=== PATIENT | female | born 1990 | race Caucasian/White ===

== ENCOUNTER → 2017-12-27 | Outpatient (CLI) | payer OTHER ==
[~2017-12-27] MED LIST: BCPILLS PO; CIPR-255 PO
--- NOTE | 2017-12-28 08:02 | MAMMOGRAPHY REPORT ---
ULTRASOUND OF LEFT BREAST: 12/27/2017 CLINICAL HISTORY: 27-year-old woman presents after her provider felt a lump in the left breast on rec ent physical examination. Patient cannot definitely feel the lump herself but reports the general loc ation in the subareolar breast. No skin erythema or thickening. No nipple discharge. No family his tory of breast cancer. COMPARISON: No prior exams were available for comparison. FINDINGS: Targeted ultrasound was performed in the periareolar and subareolar left breast with partic ular attention to the medial aspect of the subareolar breast where the patient pointed out to the abn ormality, and also the 7:00 subareolar breast as per comment provided in the doctor's order. There is dense fibroglandular tissue in the periareolar and retroareolar left breast. No discrete so lid or cystic mass is identified. No focal skin thickening or drainable fluid collection. After ult rasounding, Palpation was performed in the periareolar and retroareolar left breast and I could not palpate a dis crete abnormality. IMPRESSION: ACR BI-RADS CATEGORY 1: NEGATIVE There is no sonographic evidence of malignancy or other suspicious abnormality in the periareolar/sub areolar left breast in the area of palpable lump identified by the patient's provider. Therefore, cl inical follow-up is recommended, as biopsy of a clinically suspicious mass should not be precluded by negative imaging. These results and recommendations were discussed with the patient at the time of the exam. Zeenat Mullins M.D. ay/:12/27/2017 10:56:04 Documentation Spec: Dr. Zeenat Mullins, [facility] letter sent: Normal 1/2 BI-RADS Code: ACR BI-RADS Category 1: Negative
== END | disposition home or self-care (01) ==
LOC: C.MAMM 10:16
PROVIDERS: ATTEND Nurse Practitioner Obstetrics & Gynecology
DX: N63.20 Unspecified lump in the left breast, unspecified quadrant (principal)

== ENCOUNTER 2020-04-11 15:50 | Inpatient (IN) ==
[2020-04-11] MEDS ORDERED: OXYTOCIN 30 UNITS/500 ML BAG IV PRN (16:34)
[2020-04-11] MEDS ORDERED: LACTATED RINGER'S 1,000 ML IV PRN (16:34)
[2020-04-11 16:53] LABS: Hematocrit (blood only) 35.6 % (37-47); Hemoglobin 12.1 g/dL (12.0-16.0); Mean Corpuscular Hemoglobin 31.8 pg (25-34); Mean Corpuscular Volume 93.7 fL (80-100); Mean Platelet Volume 10.6 fL (7.4-10.4); Platelet Count 177 K/uL (130-400); RDW Coefficient of Variation 12.9 % (11.5-14.5); RDW Standard Deviation 43.9 fL (36.4-46.3); White Blood Count 15.12 K/uL (4.8-10.8)
--- NOTE | 2020-04-12 00:45 | Labor Progress Brief Note ---
Date of Service April 11, 2020 Subjective Reason For Note: Routine Evaluation Assessment & Plan (1) Supervision of normal intrauterine in primigravida: 30yo at 40.6 weeks GA. Labor 1. Fetus: Cat 1 2. Labor: Progressing un-augmented. AROM clr 3. GBS negative 4. Vitals: Stable Admission and Anticipated Discharge Date Admission Date: April 11, 2020 Physical Exam Genitourinary: Manual OB Exam: + cervical dilation 9 cm, + cervical effacement 100%, + station 0 and + amniotic fluid clear OB Exam Monitor Tracing: + external FHT monitor used, + external uterine monitor used, + category I and + normal FHT variability; no early decelerations present, no late decelerations present and no variable decelerations Results & Data ([facility]) Vital Signs (Past 12 Hours) Vital Signs Temp Pulse Resp BP 04/11/20 23:45 36.5 C 20 04/11/20 23:00 20 04/11/20 21:40 36.8 C 75 20 156/81 H 04/11/20 19:02 36.8 C 18 04/11/20 19:01 86 127/84 04/11/20 19:00 36.8 C 18 04/11/20 16:08 36.9 C 04/11/20 16:02 36.9 C 76 20 148/83 H Coding Level of Care Code None Diagnoses Supervision of normal intrauterine in primigravida Z34.00
--- NOTE | 2020-04-12 00:46 | Labor Progress Brief Note ---
Date of Service April 12, 2020 Subjective Reason For Note: Routine Evaluation Assessment & Plan (1) Supervision of normal intrauterine in primigravida: 30yo at 40.6 weeks GA. Labor 1. Fetus: Cat 1 2. Labor: Complete and starting to push. AROM clr 3. GBS negative 4. Vitals: Stable Admission and Anticipated Discharge Date Admission Date: April 11, 2020 Physical Exam Genitourinary: Manual OB Exam: + cervical dilation 10 cm, + cervical effacement 100%, + station + 1 and + amniotic fluid clear OB Exam Monitor Tracing: + external FHT monitor used, + external uterine monitor used, + category I and + normal FHT variability Results & Data ([facility]) Vital Signs (Past 12 Hours) Vital Signs Temp Pulse Resp BP 04/12/20 00:41 102 H 120/65 04/11/20 23:45 36.5 C 04/11/20 23:00 20 04/11/20 21:40 36.8 C 75 20 156/81 H 04/11/20 19:02 36.8 C 18 04/11/20 19:01 86 127/84 04/11/20 19:00 36.8 C 18 04/11/20 16:08 36.9 C 04/11/20 16:02 36.9 C 76 20 148/83 H Coding Level of Care Code None Diagnoses Supervision of normal intrauterine in primigravida Z34.00
[2020-04-12] MEDS ORDERED: METHYLERGONOVINE MALEATE 0.2 MG/ML AMP ONE (02:13)
[2020-04-12] MEDS ORDERED: HYDROCORTISONE ACETATE 25 MG SUPP PR PRN (02:37)
[2020-04-12] MEDS ORDERED: bisacodyL 10 MG SUPP PR PRN (02:37)
[2020-04-12] MEDS ORDERED: BENZOCAINE 20% AER SPR 82.5 GM CAN EXT PRN (02:37)
[2020-04-12] MEDS ORDERED: miSOPROStoL 200 MCG TAB PR ONE (02:37)
[2020-04-12] MEDS ORDERED: DIPHTHERIA/TETANUS/PERTUSSIS 0.5 ML SYR/VIAL IM ONE (02:37)
[2020-04-12] MEDS ORDERED: SUPERCREAM 0.870% 15 GM JAR EXT PRN (02:37)
[2020-04-12] MEDS ORDERED: ACETAMINOPHEN 325 MG TAB PO PRN (02:37)
[2020-04-12] MEDS ORDERED: METHYLERGONOVINE MALEATE 0.2 MG/ML AMP IM ONE (02:37)
[2020-04-12] MEDS ORDERED: OXYTOCIN 10 UNITS/ML VIAL IM ONE (02:37)
[2020-04-12] MEDS ORDERED: IBUPROFEN 600 MG TAB PO ONE (03:09)
[2020-04-12] MEDS ORDERED: miSOPROStoL 200 MCG TAB ONE (04:54)
[2020-04-12] MEDS: FERROUS SULFATE 325 MG TAB PO SCH (07:44)
[2020-04-12] MEDS: DOCUSATE SODIUM 100 MG CAP PO SCH ×2 (07:44→20:03)
[2020-04-12] MEDS: IBUPROFEN 600 MG TAB PO PRN ×4 (07:44→23:16)
[2020-04-12] MEDS: PRENATAL VITAMIN 1 TAB PO SCH (07:44)
--- NOTE | 2020-04-13 06:58 | Obstetrical Progress Note ---
Date of Service April 13, 2020 Assessment & Plan (1) Encounter for care and examination after delivery: 30 yo F PPD1 after uncomplicated on 04/12. 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 Patient may want to be discharged later today. Stable for discharge if preferred. Subjective mild abdominal pain this AM. otherwise no complaints. Review of Systems Constitutional: no fever, no chills, no body aches and no fatigue Respiratory: no cough and no dyspnea Cardiovascular: no chest pain, no dyspnea and no edema Gastrointestinal: no abdominal pain, no nausea, no vomiting, no constipation and no diarrhea/loose stools Genitourinary: no dysuria Physical Exam Constitutional: well developed and well nourished Respiratory: normal respiratory effort; no respiratory distress, no labored breathing and no cough Auscultation: no crackles, no rales, no rhonchi and no wheezes Cardiovascular: Rate/Rhythm: regular rate and regular rhythm Heart Sounds: no gallop, no murmur and no cardiac rub Extremities: no pedal edema Gastrointestinal (Abdomen): Inspection/Auscultation: + abdomen distended and normal bowel sounds Percussion/Palpation: abdomen soft; no guarding Musculoskeletal: no tenderness to palpation of calves bilaterally Genitourinary: Uterus small and firm, palpable on right 2 cm above level of umbilicus, some tenderness to palpation. Results & Data ([facility]) Vital Signs (Past 12 Hours) Vital Signs Temp Pulse Resp BP Pulse Ox 04/12/20 23:10 36.8 C 100 H 16 115/78 96 04/12/20 19:10 36.8 C 90 16 115/73 97 Laboratory Results WBC 15.12 K/uL (4.8-10.8) H 04/11/20 16:46 RBC 3.80 M/uL (4.2-5.4) L 04/11/20 16:46 Hgb 12.1 g/dL (12.0-16.0) 04/11/20 16:46 Hct 35.6 % (37-47) L 04/11/20 16:46 MCV 93.7 fL (80-100) 04/11/20 16:46 MCH 31.8 pg (25-34) 04/11/20 16:46 MCHC 34.0 g/dL (32-36) 04/11/20 16:46 RDW Std Deviation 43.9 fL (36.4-46.3) 04/11/20 16:46 RDW Coeff of Presley 12.9 % (11.5-14.5) 04/11/20 16:46 Plt Count 177 K/uL (130-400) 04/11/20 16:46 MPV 10.6 fL (7.4-10.4) H 04/11/20 16:46 Resident Activity Tracking Resident Involvement: Resident Care Provided Care Provided: OB Delivery
[2020-04-13 06:59] LABS: Hematocrit (blood only) 24.7 % (37-47); Hemoglobin 8.5 g/dL (12.0-16.0)
[2020-04-13] MEDS: DOCUSATE SODIUM 100 MG CAP PO SCH ×2 (07:57→20:30)
[2020-04-13] MEDS: FERROUS SULFATE 325 MG TAB PO SCH (07:57)
[2020-04-13] MEDS: PRENATAL VITAMIN 1 TAB PO SCH (07:57)
[2020-04-13] MEDS ORDERED: bisacodyL 5 MG TABEC PO SCH (20:00)
--- NOTE | 2020-04-14 07:30 | Obstetrical Progress Note ---
Date of Service April 14, 2020 Assessment & Plan (1) Encounter for care and examination after delivery: stable course discharge to home today follow up in 6 weeks. Day #:: 2 Subjective Ambulation: ambulating normally Voiding: no voiding problems Passing Gas:: Yes Diet Tolerance:: regular diet Lochia:: Small Feeding Type:: breast feeding Review of Systems All systems reviewed & are unremarkable except as noted in HPI & below Physical Exam Constitutional WD/WN, vitals as above Psychiatric A+Ox3, euthymic affect Genitourinary OB Exam Abdomen: + fundal height Fundus: + firm and + relation to umbilicus (2 below U) Results & Data ([facility]) Vital Signs (Past 12 Hours) Vital Signs Temp Pulse Resp BP 04/13/20 23:55 98.2 F 86 18 121/73 04/13/20 20:20 97.7 F 96 H 18 126/81
[2020-04-14] MEDS: PRENATAL VITAMIN 1 TAB PO SCH (09:24)
[2020-04-14] MEDS: DOCUSATE SODIUM 100 MG CAP PO SCH (09:24)
[2020-04-14] MEDS: FERROUS SULFATE 325 MG TAB PO SCH (09:24)
--- NOTE | 2020-04-16 09:21 | Delivery Summary ---
DATE OF OPERATION: 04/12/2020 PROCEDURE: Normal spontaneous vaginal delivery with second degree perineal laceration repair and bilateral periurethral lacerations. SURGEON: Dr. Guilherme Capps. PREOPERATIVE DIAGNOSES: 1. Single intrauterine at term. 2. Spontaneous labor. 3. Anxiety, depression. POSTOPERATIVE DIAGNOSES: 1. Single intrauterine at term. 2. Spontaneous labor. 3. Anxiety, depression. 4. Status post delivery. ESTIMATED BLOOD LOSS: 500 mL. DRAINS: Straight cath for 300 mL after delivery of placenta. COMPLICATIONS: None. FINDINGS: Viable male infant with weight of 8 pounds 4.8 ounces and Apgars of 8 and 9 at 1 and 5 minutes respectively. INDICATIONS: The patient presented in active labor at approximately 6 cm dilation. She progressed without augmentation till 9 cm. She then underwent artificial rupture of membranes for clear fluid and progressed in labor to complete-complete +2 station, at which time she felt the urge to push. The patient pushed for approximately 1 hour and 40 minutes to achieve delivery. DESCRIPTION OF PROCEDURE: The patient progressed to 10 cm dilated, 100% effaced, +2 station, pushed over an intact perineum without anesthesia and delivered a viable male , weight and Apgars as noted above. Head of the delivered in MORAIMA position and rest to right transverse. No nuchal cord was noted. Body and shoulders quickly followed. was noted to be vigorous upon delivery and a 1-minute delayed cord clamping was initiated. Cord was then double clamped and cut and the remained with maternal abdomen. Cord blood was obtained. Attention was then turned to deliver the placenta, which was delivered intact, 3-vessel cord, gentle cord traction. On inspection of the perineum, vagina and cervix, there was noted to be a second degree perineal laceration. After delivery of placenta, 10 units of IM Pitocin were given to the patient secondary to not having an IV access. She also received Methergine and Cytotec during the repair process. The second degree perineal laceration was repaired with 3-0 Vicryl in continuous running crown stitch. Needle, sponge and instrument counts were correct at the completion of the case. Both mother and were stable in the immediate post delivery period. I attest to the content of the Intraoperative Record and any orders documented therein. Any exceptions are noted below. CHARU
== END 2020-04-14 14:30 | disposition home or self-care (01) | DRG 807 ==
LOC: OPB 15:50 → 4S1 15:51 → 4S2 04-12 05:10

== ENCOUNTER 2023-04-27 07:37 | Inpatient (IN) ==
[2023-04-27] MEDS ORDERED: OXYTOCIN 30 UNITS/500 ML BAG IV PRN ×3 (09:24→19:55)
[2023-04-27] MEDS ORDERED: LIDOCAINE 1% LOCAL 20 ML VIAL INFIL PRN (09:24)
[2023-04-27] MEDS ORDERED: LACTATED RINGER'S 1,000 ML IV PRN (09:24)
--- NOTE | 2023-04-27 10:06 | History & Physical Report ---
Date of Service April 27, 2023 Assessment & Plan (1) Encounter for supervision of normal in multigravida: Plan: Admit to L&D for IOL. EFM/toco. Discussion about IV - she would prefer against, as she has vasovagal symptoms with venous access - discussed that I would really recommend this, as this is used in emergencies and hemorrhage scenarios - difficult to predict. She was agreeable to this, requested for IV start and labs to be done at the same time. I think this is reasonable. Would prefer no epidural. Reviewed plan together. Admission and Anticipated Discharge Date Admission Date: April 27, 2023 History of Present Illness Chief Complaint: IOL Primary Care Provider: Arleth Arciniega MD 33yo @ 41 11/29, here for IOL. Had membrane sweep in office yesterday, started contractions approx 4a. She is really hoping to labor naturally, and plans against epidural. Carrier of Aaron Sachs, [place] Type I from [address] (and Horizon) *FOB Negative Recent SAB 07/13/22 GDM w/28wk glucola *Begin monthly Growth US's IOL 04/27 Allergies Allergy/AdvReac Type Severity Reaction Status Date / Time amoxicillin Allergy UNKNOWN Verified 04/27/23 08:39 Sulfa (Sulfonamide Allergy UNKNOWN Verified 04/27/23 08:39 Antibiotics) Home Medications Medication Instructions Recorded Confirmed Type vitamins-iron fumarate 27 1 tab PO DAILY 04/11/20 04/26/23 History mg iron-folic acid 0.8 mg tablet ( Vitamin) ferrous sulfate PO 02/10/23 04/26/23 History acetone (urine) test (Ketone Urine #50 ea 02/16/23 04/26/23 Rx Test strips) blood sugar diagnostic (OneTouch #150 ea 02/16/23 04/26/23 Rx Verio test strips) blood-glucose meter (OneTouch #1 ea 02/16/23 04/26/23 Rx Verio Reflect Meter) lancets 33 gauge (OneTouch Delica #150 ea 02/16/23 04/26/23 Rx Lancets) Patient History Medical History (Updated 04/27/23 @ 08:38 by Ariadna Sorto RN) Depression Hx of varicella Syncope 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 FOB negative per patient Yeast infection Surgical History [place] teeth removed Family History Grandfather (Maternal) Colorectal cancer Father Dyslipidemia Pyloric stenosis Mother Breast cancer, Onset Age: 65 Derrick's thyroiditis Aaron-Sachs carrier Colonic polyp Grandfather (Paternal) Pyloric stenosis Denies family history of Ovarian cancer Uterine cancer Social History (Updated 09/05/22 @ 09:58 by Arleth Cruz) Smoking Status: Never smoker Second Hand Exposure: No; Do You Dip or Chew Tobacco: No; Tobacco Cessation Education Requested by Patient: No Hx Alcohol Use: No Hx Substance Use: No Preferred Language: Surinamese Communication Ability: Effective Visual Impairment: No Limitations [employer] Buyer Required: No Beliefs That Will Affect Care: None marital status: marital status details: Jet Cheng (33) [phone] Current Living Situation: Spouse Current Living Situation Comment: lives with spouse, child, 1 dog current occupational status: employed current occupation: Certified Performance [employer] Other Information That Helps Us Care for You: No Feels Safe at Home: Yes Safety Concerns: Feels Safe At This Time Assistive Devices: Glasses Review of Systems All systems reviewed & are unremarkable except as noted in HPI & below Physical Exam Physical Exam: FHT Cat 1 [place] Q 8 SVE 6/100/-1, soft/mid Constitutional: WD/WN, vitals as above Respiratory: normal respiratory effort, lungs clear to auscultation no respiratory distress Cardiovascular: Rate/Rhythm: regular rate and regular rhythm Gastrointestinal (Abdomen): Inspection/Auscultation: abdomen normal to inspection Percussion/Palpation: abdomen soft; abdomen nontender Gravid. No s/s chorio or abruption. Skin: no rashes, warm and dry Psychiatric: A+Ox3, euthymic affect Results & Data Vital Signs (Past 12 Hours) Vital Signs Temp Pulse Resp BP 04/27/23 07:59 37.0 C 99 H 18 132/75 04/27/23 09:24 81 124/67 04/27/23 07:52 99 H 132/75 Coding Level of Care Code None Diagnoses Encounter for supervision of normal in multigravida Z34.80
[2023-04-27 10:54] LABS: Hematocrit (blood only) 35.7 % (37.0-47.0); Hemoglobin 12.5 g/dl (12.0-16.0); Mean Corpuscular Hemoglobin 32.1 pg (25.0-34.0); Mean Corpuscular Volume 91.5 fL (80.0-100.0); Platelet Count 149 K/uL (130-400); RDW Coefficient of Variation 13.5 % (11.5-14.5); RDW Standard Deviation 45.4 fL (36.4-46.3); White Blood Count 11.08 K/ul (4.8-10.8)
--- NOTE | 2023-04-27 13:35 | Labor Progress Brief Note ---
Date of Service April 27, 2023 Subjective Uncomfortable with ctx. FHT Cat 1 [place] Q 5-6 SVE 7/100/0, bulging membranes Offered AROM, she'd like to watch labor. Assessment & Plan Admission and Anticipated Discharge Date Admission Date: April 27, 2023 Results & Data Vital Signs (Past 12 Hours) Vital Signs Temp Pulse Resp BP 04/27/23 07:59 37.0 C 99 H 18 132/75 04/27/23 11:23 36.9 C 126 H 20 122/79 04/27/23 09:24 81 124/67 04/27/23 07:52 99 H 132/75 Coding Level of Care Code None Diagnoses
--- NOTE | 2023-04-27 19:48 | Delivery Summary ---
Vaginal Delivery Summary Date of Service April 27, 2023 Vaginal Delivery Summary and 2nd Degree LAC Vaginal Delivery Summary: Pre-delivery diagnoses: 33yo @ 41 2/, labor, Aaron-Sachs carrier, [id number] Post-delivery diagnoses: same Procedure: spontaneous vaginal delivery Surgeon: Tania Tolentino DO Complications: none Findings: Viable . Apgars: 8/9. Weight pending, please see nursery records Estimated blood loss: 300ml Description of delivery: The patient progressed to complete without anesthesia. She then began to push. She spontaneously vaginally delivered a viable from the cephalic presentation. The head delivered in MORAIMA position. Nuchal x 2, easily reduced. The anterior shoulder delivered, followed by the posterior shoulder, followed by the body. The baby was placed on mother's abdomen and a spontaneous cry was heard. Delayed cord clamping was employed, and the cord was doubly clamped and cut. Cord blood was obtained. The placenta was delivered spontaneously intact with a 3-vessel cord. The uterus and vagina were swept of clots and debris. IV pitocin was given. The uterus became firm. The cervix, vagina, and perineum were inspected and a 2nd degree laceration was noted. Lidocaine 1% for local anesthetic. Repaired with 3-0 Vicryl in standard fashion. Excellent hemostasis was observed. The mother and baby are recovering in stable and good condition in the room. Sponge, needle, and instrument counts were correct x 2. Tania Tolentino DO [facility] Vaginal Delivery Charge Vaginal Delivery Codes: 04411 global code for the antepartum, delivery, and post- Delivery Type Details: and 2nd Degree LAC
[2023-04-27] MEDS ORDERED: oxyCODONE/ACETAMINOPHEN 5mg/325mg TAB PO PRN (19:55)
[2023-04-27] MEDS ORDERED: BENZOCAINE 20% AER SPR 82.5 GM CAN EXT PRN (19:55)
[2023-04-27] MEDS ORDERED: ACETAMINOPHEN 325 MG TAB PO PRN (19:55)
[2023-04-27] MEDS ORDERED: HYDROCORTISONE ACETATE 25 MG SUPP PR PRN (19:55)
[2023-04-27] MEDS ORDERED: DIPHTHERIA/TETANUS/PERTUSSIS Vaccine (Tdap, Age 7+yrs) 0.5mL SYR/VL IM ONE (19:55)
[2023-04-27] MEDS ORDERED: bisacodyL 10 MG SUPP PR PRN (19:55)
[2023-04-27] MEDS: IBUPROFEN 600 MG TAB PO PRN (20:05)
[2023-04-27] MEDS: DOCUSATE SODIUM 100 MG CAP PO SCH (20:06)
[2023-04-28 06:53] LABS: Hematocrit (blood only) 30.8 % (37.0-47.0); Hemoglobin 10.8 g/dl (12.0-16.0)
--- NOTE | 2023-04-28 07:45 | Obstetrical Progress Note ---
Date of Service April 28, 2023 Assessment & Plan (1) Encounter for supervision of normal in multigravida: PPD#1 doing well. Routine care, anticipate DC home tomorrow. Subjective Ambulation: ambulating normally Voiding: no voiding problems Diet Tolerance:: regular diet Lochia:: Moderate Review of Systems All systems reviewed & are unremarkable except as noted in HPI & below Physical Exam Constitutional WD/WN, vitals as above no acute distress Respiratory normal respiratory effort Cardiovascular Rate/Rhythm: regular rate and regular rhythm Gastrointestinal (Abdomen) Inspection/Auscultation: abdomen normal to inspection; abdomen not distended Percussion/Palpation: abdomen soft Genitourinary OB Exam Abdomen: + fundal height Fundus: + firm; not tender Results & Data Vital Signs (Past 12 Hours) Vital Signs Temp Pulse Pulse Resp BP BP Pulse Ox 04/28/23 03:52 36.7 C 84 18 111/73 98 04/27/23 22:02 36.9 C 18 118/62 04/27/23 19:55 83 18 135/71 04/27/23 20:55 92 H 128/67 04/27/23 20:40 83 130/67 04/27/23 20:25 78 118/63 04/27/23 20:10 78 132/68 04/27/23 19:55 83 135/71 O2 Del Method 04/28/23 03:52 Room Air 04/27/23 22:02 Room Air 04/27/23 19:55 04/27/23 20:55 04/27/23 20:40 04/27/23 20:25 04/27/23 20:10 04/27/23 19:55
[2023-04-28] MEDS: DOCUSATE SODIUM 100 MG CAP PO SCH ×2 (08:40→20:26)
[2023-04-28] MEDS: PRENATAL VITAMIN 1 TAB PO SCH (08:40)
[2023-04-28] MEDS: IBUPROFEN 600 MG TAB PO PRN (14:58)
[2023-04-28] MEDS ORDERED: bisacodyL 5 MG TABEC PO SCH (20:00)
[2023-04-29] MEDS: IBUPROFEN 600 MG TAB PO PRN ×2 (00:26→08:41)
--- NOTE | 2023-04-29 07:19 | Obstetrical Progress Note ---
Date of Service April 29, 2023 Assessment & Plan (1) examination following vaginal delivery: Plan stable, routine care. dc home, instructions reviewed. f/u 6wks pp. Day #:: 2 Subjective Ambulation: ambulating normally Voiding: no voiding problems Diet Tolerance:: regular diet Lochia:: Small Feeding Type:: breast feeding no pain issues Constitutional: + as per Subjective / HPI Physical Exam Constitutional WD/WN, vitals as above Respiratory normal respiratory effort, lungs clear to auscultation Cardiovascular Rate/Rhythm: regular rate and regular rhythm Gastrointestinal (Abdomen) Inspection/Auscultation: abdomen normal to inspection Percussion/Palpation: abdomen soft Fundus firm 2cm down Musculoskeletal nt calves no edema Neurologic grossly normal Psychiatric A+Ox3, euthymic affect Results & Data Vital Signs (Past 12 Hours) Vital Signs Temp Pulse Resp BP Pulse Ox O2 Del Method 04/29/23 00:20 98.1 F 87 16 117/79 97 Room Air 04/28/23 20:40 98.2 F 96 H 18 122/75 98 Room Air
[2023-04-29] MEDS: PRENATAL VITAMIN 1 TAB PO SCH (08:41)
[2023-04-29] MEDS: DOCUSATE SODIUM 100 MG CAP PO SCH (08:41)
== END 2023-04-29 10:15 | disposition home or self-care (01) | DRG 807 ==
LOC: 4S1 07:37 → 4E2 22:00